=== PATIENT | female | born 1960 | race African-American/Black ===

== ENCOUNTER 2018-03-24 06:06 | Day surgery (SDC) | payer OTHER ==
[2018-03-23 17:18] VITALS: BMI 30.9
[2018-03-24] MEDS ORDERED: LIDOCAINE HCL 1%, 10 MG/ML (20ML VIAL) ONE (10:55)
[2018-03-24] MEDS ORDERED: MIDAZOLAM HCL 2 MG/2 ML SINGLE DOSE VIAL ONE (11:43)
[2018-03-24] MEDS ORDERED: ceFAZolin SODIUM 1 GM VIAL ONE (11:50)
[2018-03-24] MEDS ORDERED: ceFAZolin SODIUM 1 GM VIAL IVPB ONE (11:51)
[2018-03-24] MEDS ORDERED: LIDOCAINE HCL 1%, 10 MG/ML (50 mL VIAL) IJ ONE ×2 (11:55)
[2018-03-24] MEDS ORDERED: PROPOFOL 20 ML ONE (12:28)
--- NOTE | 2018-03-24 12:40 | OP ---
Operative Note - Note: Operative Date: 03/24/18 Pre-Operative Diagnosis: Urge incontinence Operation: Full interstim placement Implants: Interstim device Post-Operative Diagnosis: Same as Pre-op Surgeon: Jimbo Spring MD. Estimated Blood Loss (mls): 5 Operative Report Dictated: Yes
[2018-03-24] MEDS ORDERED: ONDANSETRON 4 MG/2 ML VIAL IVPUSH PRN (12:49)
[2018-03-24] MEDS ORDERED: oxyCODONE HCL 5 MG TABLET PO PRN (12:49)
[2018-03-24] MEDS ORDERED: ACETAMINOPHEN 325 MG TABLET (FP) PO PRN (12:49)
[2018-03-24] MEDS ORDERED: LACTATED RINGERS SOLUTION 1,000 ML IV SCH (13:00)
[2018-03-24 13:58] VITALS: PULSE 60
[2018-03-24] MEDS ORDERED: oxyCODONE HCL 5 MG TABLET PO ONE (14:35)
[2018-03-24] MEDS ORDERED: oxyCODONE HCL 5 MG TABLET ONE (14:35)
[2018-03-24 16:20] VITALS: TEMP 97.5
[2018-03-24 17:47] VITALS: BP 115/71
--- NOTE | 2018-04-15 12:50 | OP ---
DATE OF OPERATION: 03/24/2018 PREOPERATIVE DIAGNOSIS: Neurogenic bladder with urge incontinence. POSTOPERATIVE DIAGNOSIS: Neurogenic bladder with urge incontinence. PROCEDURE: Full InterStim placement. HISTORY: This is a very pleasant patient with a history of urge incontinence and frequency. This was refractory to multiple anticholinergics as well as Myrbetriq. Patient had a urodynamic evaluation which was consistent with an overactive bladder with high filling pressures and decreased capacity as well as documented urge incontinence. After discussing all treatment options the patient elected to undergo the above-stated procedure. Risks and benefits of treatment and alternative treatments were discussed in detail. BRIEF OPERATIVE NOTE: The patient was brought into the operating room, placed in the prone position. Intravenous antibiotics were given. At this time the sacral foramina were identified fluoroscopically and were marked approximately 2 cm lateral to the midline and 2 cm above the S3 foramen. It was anesthetized bilaterally. At this time a percutaneous spinal needle was used to access the S3 foramen on both sides. The needle was then stimulated to elicit a response. A great toe response was seen on both sides as well as linnette. At this time the response was felt to be better on the patient's left side. The wire was then placed and fluoroscopically confirmed to be in normal position with a "hockey stick" laterally. All leads were tested. There was response at relatively low settings. At this time the lead was then placed. The lead was then tunneled under the skin into a pocket which was created after making a 3-cm incision laterally in the superior buttocks region. The electrode was then hooked up to the battery pack in the standard fashion. It was again tested with the [employer] business development representative and was felt to be in normal working condition. Once the battery was placed with the electrode beneath the battery the subcuticular tissue was closed using interrupted 3-0 chromic. The skin was closed with a subcuticular 4-0 Monocryl. A dry sterile occlusive dressing was applied. Patient was brought to the recovery room in stable and satisfactory condition. Christy [id number]
== END 2018-03-24 15:30 | disposition home or self-care (01) ==
LOC: JASU-SURG 06:06
PROVIDERS: ATTEND Urology
PROC: 01HY0MZ Insertion of Neurostimulator Lead into Peripheral Nerve, Open Approach (ICD-10-PCS; 2018-03-24)
PROC: 4B01XVZ Measurement of Peripheral Nervous Stimulator, External Approach (ICD-10-PCS; 2018-03-24)
PROC: 0JH70MZ Insertion of Stimulator Generator into Back Subcutaneous Tissue and Fascia, Open Approach (ICD-10-PCS; principal; 2018-03-24 11:00)
DX: N39.41 Urge incontinence (principal); N32.81 Overactive bladder; N31.9 Neuromuscular dysfunction of bladder, unspecified
CPT/HCPCS: 64581; 64590; 95972; C1778; L8679; 76000-TC-FY; 94760